=== PATIENT | male | born 1990 | race Asian ===

== ENCOUNTER 2024-11-24 20:19 | Emergency (ER) | payer OTHER ==
[~2024-11-24] VITALS: Ht 172.7 cm; Wt 72.0 kg
[2024-11-24 20:28] VITALS: TEMP 36.4
[2024-11-24] MEDS: MIDAZOLAM HCL 2 MG/2 ML VIAL IV ONE (23:01)
[2024-11-24] MEDS: ONDANSETRON HCL 4MG/2ML INJ IV ONE (23:01)
[2024-11-24 23:02] VITALS: O2SAT 97
[2024-11-24] MEDS: MORPHINE SULFATE 4 MG/ML INJ (FOR IV/IM USE) IM ONE (23:17)
[2024-11-25] MEDS ORDERED: IBUP-2029 MT (01:23)
[2024-11-25 02:10] VITALS: BP 188/98; PULSE 95; RESP 18; O2SAT 99
== END 2024-11-25 02:15 | disposition home or self-care (01) ==
LOC: ER 20:19
DX: S83.004A Unspecified dislocation of right patella, initial encounter (principal); I10 Essential (primary) hypertension; W19.XXXA Unspecified fall, initial encounter; Y93.89 Activity, other specified; Y92.89 Other specified places as the place of occurrence of the external cause; Y99.8 Other external cause status
CPT/HCPCS: 73552; 73560; 73590; 27560; 99152; 99285; J2250; J2405; J2270; Z7610